=== PATIENT | male | born 1980 | race Caucasian/White ===

== ENCOUNTER 2018-11-14 17:16 | Emergency (ER) | payer BC ==
[~2018-11-14] VITALS: Ht 188 cm; Wt 82.1 kg
--- NOTE | 2018-11-14 17:45 | NUR ---
patient presented to the ER c/o pain left side of face - appear dented s/p hitting a bench while skate boarding x 30 mins ago no LOC, denies n/v. alert and oriented x 4, verbally responsive, and able to make needs known. on room air, breathing evenly and unlabored. kept comfortable. will continue to monitor accordingly.
[2018-11-14 19:09] VITALS: BP 124/61
--- NOTE | 2018-11-14 19:10 | NUR ---
Patient discharged to home in stable condition. Written and verbal after care instructions given. Patient verbalizes understanding of instruction.
== END 2018-11-14 19:10 | disposition home or self-care (01) ==
LOC: ER 17:19
DX: S02.40FA Zygomatic fracture, left side, initial encounter for closed fracture (principal); V00.131A Fall from skateboard, initial encounter; Y93.51 Activity, roller skating (inline) and skateboarding; Y92.39 Other specified sports and athletic area as the place of occurrence of the external cause; Y99.8 Other external cause status
CPT/HCPCS: 70450; 70486; 99284; A4606